=== PATIENT | female | born 1980 | race Caucasian/White ===

== ENCOUNTER 2019-06-01 08:04 | Emergency (ER) | payer MEDICARE ==
[2019-06-01] MEDS ORDERED: PREDNISONE50 MG PO (08:26)
[2019-06-01] MEDS ORDERED: DOXYCYCL HYC100 M4 PO (08:26)
[2019-06-01 08:36] VITALS: BP 113/91
[2019-08-25] MEDS ORDERED: SPIRIVA IN (10:41)
[2019-08-25] MEDS ORDERED: PROAIR HFA IN (10:42)
== END 2019-06-01 08:57 | disposition home or self-care (01) ==
LOC: ED 08:04
DX: J40 Bronchitis, not specified as acute or chronic (principal); Z87.891 Personal history of nicotine dependence

== ENCOUNTER 2019-06-04 | Emergency (ER) | payer MEDICARE ==
[~2019-06-04] MED LIST: DOXYCYCL HYC100 M4 PO; PREDNISONE50 MG PO
[2019-06-04 23:25] LABS: HEMATOCRIT 39.1 % (37.0-47.0); HEMOGLOBIN 13.1 g/dl (12.0-16.0); IMMATURE GRANULOCYTES 0.3 % (0.0-5.0); MEAN CELL VOLUME 92.9 fL CALC (80.0-100.0); MEAN CORPUSCULAR HGB 31.1 pG CALC (26.0-32.0); MEAN CORPUSCULAR HGB CONC 33.5 g/L CALC (32.0-36.0); NEUT# 4.49 thou/uL (2.00-7.15); RED BLOOD COUNT 4.21 mill/uL (4.20-5.60); RED CELL DISTRI WIDTH 14.6 % (11.5-15.5)
[2019-06-04 23:34] LABS: ALBUMIN 4.3 g/dL (3.2-5.0); ALKALINE PHOSPHATASE 105 u/l (38-126); ANION GAP 12 (6-22 (CALC)); BILIRUBIN, TOTAL 0.5 mg/dL (0.0-1.4); BUN 12 mg/dL (7-17); BUN/CREATININE RATIO 14 (12-20 (CALC)); CARBON DIOXIDE 24 mmol/l (22-30); CHLORIDE 104 mmol/l (95-108); CREATININE 0.8 mg/dL (0.5-1.0); GFR > 60 ML/MIN (>=60 (CALC)); GFR FOR AFR.AMER. > 60 ML/MIN (>=60 (CALC)); SGOT/AST 19 u/l (14-36); SODIUM 137 mmol/l (137-146); TOTAL PROTEIN 7.6 g/dL (6.3-8.2)
[2019-06-04 23:35] LABS: POTASSIUM 3.3 mmol/l (3.5-5.1)
[2019-06-05] MEDS ORDERED: MEDDOSEPAK PO (01:11)
[2019-06-05] MEDS ORDERED: ZITHROMAX250 MG PO (01:11)
[2019-08-25] MEDS ORDERED: SPIRIVA IN (10:41)
[2019-08-25] MEDS ORDERED: PROAIR HFA IN (10:42)
== END 2019-06-05 01:18 | disposition home or self-care (01) ==
PROVIDERS: Emergency Medicine
DX: J18.9 Pneumonia, unspecified organism (principal); F17.210 Nicotine dependence, cigarettes, uncomplicated

== ENCOUNTER 2019-06-13 | Emergency (ER) | payer MEDICARE ==
[~2019-06-13] MED LIST changes: +MEDDOSEPAK PO; +ZITHROMAX250 MG PO
[2019-06-13] MEDS ORDERED: ULTRAM50 M1 PO (01:47)
[2019-08-25] MEDS ORDERED: SPIRIVA IN (10:41)
[2019-08-25] MEDS ORDERED: PROAIR HFA IN (10:42)
== END 2019-06-13 01:55 | disposition home or self-care (01) ==
DX: K08.89 Other specified disorders of teeth and supporting structures (principal); F17.210 Nicotine dependence, cigarettes, uncomplicated

== ENCOUNTER 2019-09-01 07:03 | Day surgery (SDC) | payer MEDICARE ==
[~2019-09-01 07:03] MED LIST changes: +PROAIR HFA IN; +SPIRIVA IN; +ULTRAM50 M1 PO
[2019-09-01] MEDS ORDERED: HYDROCODONE/ACE1 TAB PO ×2 (08:47→08:48)
[2019-09-01 11:09] VITALS: BP 127/71
== END 2019-09-01 10:50 | disposition home or self-care (01) ==
LOC: ORM 07:03
PROVIDERS: ATTEND Anesthesiology Pain Medicine
DX: M54.5 Low back pain (principal); Z01.84 Encounter for antibody response examination

== ENCOUNTER 2020-11-15 17:27 | Emergency (ER) | payer MEDICARE ==
[~2020-11-15] VITALS: Ht 157.5 cm; Wt 81.0 kg
[~2020-11-15 17:27] MED LIST changes: +HYDROCODONE/ACE1 TAB PO
[2020-11-15] MEDS ORDERED: MEDDOSEPAK PO (18:33)
[2020-11-15 18:45] VITALS: BP 127/84
== END 2020-11-15 18:45 | disposition home or self-care (01) ==
LOC: ED 17:27
DX: J44.9 Chronic obstructive pulmonary disease, unspecified (principal); F17.210 Nicotine dependence, cigarettes, uncomplicated; Z20.822 Contact with and (suspected) exposure to COVID-19

== ENCOUNTER 2020-11-25 08:16 | Emergency (ER) | payer MEDICARE ==
[~2020-11-25] VITALS: Ht 157.5 cm; Wt 77.0 kg
[2020-11-25] MEDS ORDERED: VENTOLIN HFA IN (10:44)
[2020-11-25] MEDS ORDERED: DECADRON2 MG PO (10:44)
[2020-11-25] MEDS ORDERED: ZPAK PO (10:44)
[2020-11-25 10:47] VITALS: BP 124/76
== END 2020-11-25 11:07 | disposition home or self-care (01) ==
LOC: ED 08:16
DX: U07.1 COVID-19 (principal); J40 Bronchitis, not specified as acute or chronic; F17.200 Nicotine dependence, unspecified, uncomplicated

== ENCOUNTER 2021-08-28 21:17 | Emergency (ER) | payer MEDICARE ==
[~2021-08-28] VITALS: Ht 157.5 cm; Wt 77.0 kg
[~2021-08-28 21:17] MED LIST changes: +DECADRON2 MG PO; +VENTOLIN HFA IN; +ZPAK PO
[2021-08-28 21:53] VITALS: BP 116/73
[2021-08-28 22:00] VITALS: BP 131/70
[2021-08-28 22:31] VITALS: BP 112/62
[2021-08-28 22:46] VITALS: BP 95/57
[2021-08-28 23:00] VITALS: BP 99/68
[2021-08-28] MEDS ORDERED: ZPAK PO (23:12)
[2021-08-28] MEDS ORDERED: FLEXERIL5 M1 PO (23:12)
[2021-08-28] MEDS ORDERED: MEDDOSEPAK PO (23:12)
[2021-08-28 23:15] VITALS: BP 118/65
== END 2021-08-28 23:19 | disposition home or self-care (01) ==
LOC: ED 21:17
DX: J42 Unspecified chronic bronchitis (principal); F17.200 Nicotine dependence, unspecified, uncomplicated; Z20.822 Contact with and (suspected) exposure to COVID-19

== ENCOUNTER 2021-11-19 21:07 | Emergency (ER) | payer MEDICARE ==
[~2021-11-19] VITALS: Ht 157.5 cm; Wt 77.0 kg
[2021-11-19] VITALS (9 sets, daily range): BP systolic 116–150; BP diastolic 65–86
[~2021-11-19 21:07] MED LIST changes: +FLEXERIL5 M1 PO
[2021-11-19 21:55] LABS: HEMATOCRIT 36.1 % (37.0-47.0); HEMOGLOBIN 12.3 g/dl (12.0-16.0); IMMATURE GRANULOCYTES 0.3 % (0.0-5.0); MEAN CELL VOLUME 92.3 fL CALC (80.0-100.0); MEAN CORPUSCULAR HGB 31.5 pG CALC (26.0-32.0); MEAN CORPUSCULAR HGB CONC 34.1 g/dL CAL (32.0-36.0); NEUT# 6.04 thou/uL (2.00-7.15); RED BLOOD COUNT 3.91 mill/uL (4.20-5.60); RED CELL DISTRI WIDTH 15.9 % (11.5-15.5)
[2021-11-19 22:10] LABS: ALBUMIN 3.4 g/dL (3.2-5.0); ALKALINE PHOSPHATASE 97 u/l (38-126); BUN 4 mg/dL (7-17); BUN/CREATININE RATIO 6 (12-20 (CALC)); CARBON DIOXIDE 26 mmol/l (22-30); CHLORIDE 104 mmol/l (95-108); CREATININE 0.7 mg/dL (0.5-1.0); GFR FOR AFR.AMER. > 60 ML/MIN (>=60 (CALC)); GFR OTHER RACES > 60 ML/MIN (>=60 (CALC)); SGOT/AST 13 u/l (14-36); SODIUM 136 mmol/l (137-146); TOTAL PROTEIN 6.5 g/dL (6.3-8.2)
[2021-11-19 22:11] LABS: ANION GAP 9 (6-22 (CALC)); BILIRUBIN, TOTAL 0.6 mg/dL (0.0-1.4); POTASSIUM 3.2 mmol/l (3.5-5.1)
[2021-11-19 22:18] LABS: MYOGLOBIN 30 ng/mL (0 - 62)
[2021-11-19] MEDS ORDERED: ROBITUSSIN AC10 ML PO (23:20)
[2021-11-19] MEDS ORDERED: KEFLEX500 MG PO (23:20)
[2021-11-19] MEDS ORDERED: MEDDOSEPAK PO (23:20)
== END 2021-11-19 23:30 | disposition home or self-care (01) ==
LOC: ED 21:07
PROVIDERS: Emergency Medicine
DX: J42 Unspecified chronic bronchitis (principal); F17.210 Nicotine dependence, cigarettes, uncomplicated; Z20.822 Contact with and (suspected) exposure to COVID-19

== ENCOUNTER 2022-10-19 17:05 | Emergency (ER) | payer MEDICARE ==
[~2022-10-19] VITALS: Ht 157.5 cm; Wt 73.6 kg
[~2022-10-19 17:05] MED LIST changes: +KEFLEX500 MG PO; +ROBITUSSIN AC10 ML PO
[2022-10-19] MEDS ORDERED: PENICILLN VK500 MG PO (19:53)
[2022-10-19] MEDS ORDERED: NAPROXEN500 MG PO (19:53)
[2022-10-19 20:50] VITALS: BP 105/76
== END 2022-10-19 20:50 | disposition home or self-care (01) ==
LOC: ED 17:05
DX: K04.7 Periapical abscess without sinus (principal); K02.9 Dental caries, unspecified; S02.5XXA Fracture of tooth (traumatic), initial encounter for closed fracture; F17.210 Nicotine dependence, cigarettes, uncomplicated; X58.XXXA Exposure to other specified factors, initial encounter

== ENCOUNTER 2024-03-20 18:13 | Emergency (ER) | payer MEDICARE ==
[~2024-03-20] VITALS: Ht 157.5 cm; Wt 62.0 kg
[~2024-03-20 18:13] MED LIST changes: +METHOCARBAMOL500 MG PO; +NAPROXEN500 MG PO; +PENICILLN VK500 MG PO
[2024-03-20 19:12] VITALS: BP 136/101
[2024-03-20] MEDS ORDERED: IPRATROPIUM-Albuterol 0.5MG-2.5MG/3 ML NEB ONE (19:15)
[2024-03-20] MEDS ORDERED: predniSONE 20 MG/TAB PO ONE (19:20)
[2024-03-20 19:30] VITALS: BP 130/83
[2024-03-20 20:00] VITALS: BP 122/89
[2024-03-20] MEDS ORDERED: PREDNISONE20 MG PO (20:07)
[2024-03-20 20:30] VITALS: BP 132/97
== END 2024-03-20 20:42 | disposition home or self-care (01) ==
LOC: ED 18:13
DX: J40 Bronchitis, not specified as acute or chronic (principal); F17.200 Nicotine dependence, unspecified, uncomplicated; Z28.310 Unvaccinated for COVID-19; Z20.822 Contact with and (suspected) exposure to COVID-19